=== PATIENT | male | born 1940 | race Two or more races ===

== ENCOUNTER 2020-06-23 11:03 | Outpatient (CLI) | payer OTHER | END 2020-06-23 18:00 | disposition home or self-care (01) | LOC: PPH VACUNA 11:03 | PROVIDERS: ATTEND Emergency Medicine Pediatric Emergency Medicine | DX: Z23 Encounter for immunization (principal) ==

== ENCOUNTER 2021-03-08 08:00 | Outpatient (CLI) | payer OTHER | END 2021-03-08 08:30 | disposition home or self-care (01) | LOC: PPH VACUNA 08:00 | PROVIDERS: ATTEND Emergency Medicine Pediatric Emergency Medicine | DX: Z23 Encounter for immunization (principal) ==

== ENCOUNTER 2023-12-21 06:10 | Day surgery (SDC) | payer OTHER ==
[2023-12-20 08:29] LABS: HEMATOCRIT 42.1 % (39.0-48.0); HEMOGLOBIN 14.2 g/dL (13-16.00); MEAN CELL VOLUME 98.2 fL (80.0-100.00); MEAN CORPUSCULAR HEMOGLOBIN 33.2 pg (27.00-32.0); MEAN CORPUSCULAR HGB CONC 33.8 g/dl (32.0-36.0); PLATELET COUNT 181 K/uL (150-450); RED BLOOD COUNT 4.28 M/uL (4.00-6.00); RED CELL DISTRIBUTION WIDTH 13.2 % (11.5-14.5)
[2023-12-20 08:59] LABS: INR 1.02; PARTIAL THROMBOPLASTIN TIME 29.4 SECONDS (22.0-34.0); PROTHROMBIN TIME 10.7 SECONDS (9.0-11.5)
[2023-12-20 09:24] LABS: ALBUMIN 3.5 gm/dL (3.4-5.0); BILIRUBIN TOTAL 0.61 mg/dL (0.3-1.2); CALCIUM 9.1 mg/dL (8.5-10.1); CREATININE SERUM 1.01 mg/dL (0.70-1.30); GFR 70.55; GLOBULINA 3.5 G/DL (2.4-3.5); POTASSIUM 4.41 mEq/L (3.5-5.1)
[~2023-12-21 06:10] MED LIST: CHILDREN'S ASPI81 MG PO; DOXAZOSIN MESYLA2 MG PO; NORVASC5 MG PO; PROTONIX40 MG PO; ROSUVASTATIN CAL5 MG PO; TOPROL XL100 M1 PO
[2023-12-21] MEDS ORDERED: PIPERACILLIN/TAZOBACTAM SODIUM 3.375 GM VIAL IV ONE (09:45)
[2023-12-21] MEDS ORDERED: IOVERSOL 320 MG/ML - 50 ML VIAL IV ONE (10:30)
[2023-12-21] MEDS ORDERED: GLUCAGON 1 MG VIAL IV ONE (10:30)
== END 2023-12-21 12:05 | disposition home or self-care (01) ==
LOC: CIR.AMB 06:10 → AMB-ENDOS 07:57 → CIR.AMB 12:05
PROVIDERS: ATTEND Internal Medicine Gastroenterology
DX: K80.20 Calculus of gallbladder without cholecystitis without obstruction (principal); K80.01 Calculus of gallbladder with acute cholecystitis with obstruction; Z85.21 Personal history of malignant neoplasm of larynx; I10 Essential (primary) hypertension